=== PATIENT | male | born 1965 | race Caucasian/White ===

== ENCOUNTER 2025-06-16 01:51 | Day surgery (SDC) | payer OTHER, SELFPAY ==
[2025-06-03 10:15] VITALS: BMI 23.8
--- OUTSIDE RECORDS SUMMARY | 2025-06-16 01:55 | XMS_ITS | Continuity of Care Document ---
Author Organization [facility] Address [address] [facility] [address] [place] [address] Phone Care Team Providers Care Second Officer Name Role Phone Shadi OD OD, Johanny Unavailable Unavai lable Allergies, Adverse Reactions, Alerts Substance Reaction Status Criticality No Known Allergies Active No Inform ation Medications Medication Instructions Dosage Effective Dates (start - stop) Status Comments High blood pressure med BUCCAL MISCELL - Active multivitamin tablet - Active VITAMIN C (unknown strength) Not Available - Active OMEGA-3 (unknown strength) Not Available - Active Aspir-81 (unknown strength) Not Available - Active Procedures Procedure Date OFFICE/OUTPATIENT VISIT, EST OFFICE/OUTPATIENT VISIT, EST POSTOP FOLLOW-UP VISIT POSTOP FOLLOW-UP VISIT CATARACT SURG W/IOL, 1 STAGE POSTOP FOLLOW-UP VISIT POSTOP FOLLOW-UP VISIT CATARACT SURG W/IOL, 1 STAGE PHARMACY 2 EYES OFFICE/OUTPATIENT VISIT, NEW OPHTHALMIC BIOMETRY OPHTHALMIC BIOMETRY Advance Directives Directive Yes / No Effective Date File Name No Information Encounters Encounter Description Practice Location Reason(s) For Visit Diagnoses Date Provider Providers Copied on Encounter OFFICE/OUTPA TIENT VISIT, EST [facility], [address] [address], [place], [place], [id number], [place] tel:[phone] [facility] [place] Pseudophakia check (chief complaint) Other secondary cataract, bilateralOthe r vitreous opacities, bilateralPseu doaphakiaBila teral keratoconjunc tivitis sicca, not specified as Sjogren's 4 Derheimer OD Johanny. [address], [address], [place], [place], [id number], [place]. tel:[phone] Referring Provider: Family Lashell Terry OFFICE/OUTPA TIENT VISIT, [facility], [address] [place] [address], [id number], [place] tel:[phone] [facility] [place] blurry vision (chief complaint) Pseudoaphakia Other secondary cataract, bilateralOthe r vitreous opacities, bilateral 1 Derheimer OD Johanny. [address], [address], [place], [place], [id number], [place]. tel:[phone] Referring Provider: Family Lashell Terry [facility], [address] [place] [address], [id number], [place] tel:[phone] [facility] CONSULT [facility] [place] Post-Op (chief complaint) Pseudoaphakia 1 Derheimer OD Johanny. [address], [address], [place], [place], [id number], [place]. tel:[phone] Referring Provider: Family Lashell Terry [facility], [address] [place] [address], [id number], [place] tel:[phone] [facility] CONSULT [facility] [place] Post-Op (chief complaint) Age-related nuclear cataract, right eye 1 Derheimer OD Johanny. [address], [address], [place], [place], [id number], [place]. tel:[phone] Referring Provider: Family Lashell Terry [facility], [address] [place] [address], [id number], [place] tel:[phone] [facility] No Information 1 Charlie Watson. [address], [address], [place], [place], [id number], . tel:[phone] Referring Provider: Walter Hurd, [address], [place], [address] . tel:[phone] [facility], [address] [place] [address], [id number], tel:[phone] [facility]SULT [facility] [place] Post-Op (chief complaint) Pseudoaphakia 1 Derheimer OD Johanny. [address], [address], [place], [place], [id number], [place]. tel:[phone] Referring Provider: Family Lashell Terry [facility], [address] [place] [address], [id number], tel:[phone] [facility]PH CONSULT [facility] [place] Post-Op (chief complaint) Age-related nuclear cataract, bilateral 1 Derheimer OD Johanny. [address], [address] [place] [address], [id number], [place]. tel:[phone] Referring Provider: Family Lashell Terry [facility], [address] [place] [address], [id number], tel:[phone] [facility] No Information 1 Charlie Watson. [address], [address], [place], [place], [id number], [place]. tel:[phone] Referring Provider: Walter Hurd, [address], [place], [address] . tel:[phone] [facility], [address] [place] [address], [id number], [place] tel:[phone] OPH CONSULT [facility] No Information 1 Charlie Watson. [address], [address], [place], [place], [id number], [place]. tel:[phone] OFFICE/OUTPA TIENT VISIT, [facility], [address] [place] [address] [place], [id number], [place] tel:[phone] OPH CONSULT [facility] decreased vision (chief complaint) Age-related nuclear cataract, bilateralDerm atochalasis of left upper eyelidBilater al keratoconjunc tivitis sicca, not specified as Sjogren'sPost erior subcapsular polar age-related cataract, bilateral [phone] Charlie Watson. [address], [address], [place], [place], [id number], [place]. tel:[phone] Referring Provider: No PCP A.. Family History Family Member Type Diagnosis Age At Onset Problem No family history of Macular degeneration Problem No family history of Diabete s mellitus Problem No family history of Glaucom a Payers Payer name Insurance type Covered alliance party ID Authorbimal mcdaniel(s) [facility] [id number] Social History Type Description Quantity Date Captured Comments Alcohol Use Details Caffeine Use Details Unknown Tobacco Use Status Current non-smoker Smoking Status Never smoker Non-Smoking Tobacco Use Details : No Details Available : No Details Available Sex Male Chief Complaint And Reason For Visit From encounter dated '02/21/2024 07:00'. Pseudophakia check (chief complaint). Description: The 59 year old male presents for evaluation of Pseudophakia check in the right eye and left eye. It affects OU. He is PCIOL OU. He states his VA isgood. He is using OTC readers when needed and this is still working well. Reason For Referral Reason For Referral No Information History Of Present Illness Encounter Date Complaint History Of Prese nt Illness Pseudophakia check The 59 year o ld male presents for evaluation of Pseudophakia check in the right eye and left eye. It affects OU. He is PCIOL OU. He states his VA is good. He is using OTC readers when needed and this is still working well. blurry vision The 56 year old male presents for evaluation of blurry vision. Pt is here for 6 month follow up after PC IOL. Pt reports distance vision is great. Pt uses cheaters for near work, no complaints. Post-Op The status of th e patient has improved. The patient reports no pain. Additional information: Pt states vision OU is good after surgery. Denies eye pain/discomfort todayS/P CEIOL OU Std/DistOC's pt. Post-Op Additional infor mation: S/P PC IOL OU, ST/DVOC pt, no pain, vision is bettercompound gtts and Systane QID. Post-Op Additional infor mation: 1 week PCIOL PO OS, Std/DistPt says eye doing well since SxUsing [id number] 04/12/21 Std/DistOC pt. Post-Op Additional infor mation: 1 day PCIOL PO OS, Std/DistPt says eye doing well since SxUsing [id number] 04/12/21 Std/DistOC pt. decreased vision The 55 year old male presents for evaluation of decreased vision in the left eye. It started about 6 month(s) ago. It occurs all the time. It affects both near and far vision. Pt presents for a cat eval. He was ref'd by 2 co-workers. A mac OCT was ordered today. Functional Status Date Functional Assessmen t No Information Instructions Date Instruction Additional Infor mation Impression/Plan Related to Pseud oaphakia Impression/Plan Related to Other vitreous opacities, bilateral Impression/Plan Related to Other secondary cataract, bilateral Impression/Plan Related to Bilat eral keratoconjunctivitis sicca, not specified as Sjogren's Impression/Plan Related to Other vitreous opacities, bilateral Impression/Plan Related to Other secondary cataract, bilateral Impression/Plan Related to Pseud oaphakia Impression/Plan Related to Pseud oaphakia Impression/Plan Related to Age-r elated nuclear cataract, right eye Impression/Plan Related to Pseud oaphakia Impression/Plan Related to Age-r elated nuclear cataract, bilateral Return for CE IOL c Charlie Related to Bilateral keratoconjunctivitis sicca, not specified as Sjogren's Impression/Plan Related to Poste rior subcapsular polar age-related cataract, bilateral Impression/Plan Related to Age-r elated nuclear cataract, bilateral Impression/Plan Related to [place] tochalasis of left upper eyelid Impression/Plan Related to Bilat eral keratoconjunctivitis sicca, not specified as Sjogren's Assessments Type Assessment Date assessment Other secondary cataract, bilate ral impression Other secondary cataract, bilate ral: H26.493 assessment Other vitreous opacities, bilate ral impression Other vitreous opacities, bilate ral: H43.393 assessment Pseudoaphakia impression Pseudoaphakia: Z96.1 assessment Bilateral keratoconj unctivitis sicca, not specified as Sjogren's impression Bilateral keratoconj unctivitis sicca, not specified as Sjogren's: H16.223 Patient Care Teams Name Effective Dates (start - stop) Status Members No Information
[2025-06-16 10:13] VITALS: BP 153/89; PULSE 91; RESP 17; TEMP 36.7; O2SAT 100; BMI 22.1
[2025-06-16] MEDS: LACTATED RINGERS 1,000 ML 150 ML IV CONT (10:23)
--- NOTE | 2025-06-16 10:24 | P.PNAN_ITS ---
Anes - Initial Pre Proc Eval Procedure: Operation Date: 06/16/25 12:30 Proposed Procedures p Screening Colonoscopy - Keo Yusuf MD Date/Time: 06/16/25 10:24 Surgeon: Keo Yusuf MD Pre Op Diagnosis: Encounter for screening for malignant neoplasm of Patient Data Age: 60 Gender: M Height: 1.65 m Weight: 60.4 kg Last Vital Signs Temp 36.7 C 06/16/25 10:13 Pulse 91 06/16/25 10:13 Resp 17 06/16/25 10:13 BP 153/89 H 06/16/25 10:13 Pulse Ox 100 06/16/25 10:13 O2 Del Method Room Air 06/16/25 10:13 Allergies Allergy/AdvReac Type Severity Reaction Status Date / Time No Known Allergies Allergy Verified 06/16/25 10:10 Home Medications ?Medication ?Instructions ?Recorded ?Confirmed ?Type amlodipine 10 mg tablet 10 mg PO DAILY 03/13/25 06/16/25 History lisinopril 20 1 tablet PO DAILY 03/13/25 06/16/25 History mg-hydrochlorothiazide 12.5 mg tablet sildenafil 100 mg tablet 100 mg PO DAILY PRN sexual activity 03/13/25 06/03/25 History ascorbic acid (vitamin C) 1,000 mg 1 g PO DAILY 06/03/25 06/16/25 History tablet aspirin 81 mg tablet,delayed 81 mg PO DAILY 06/03/25 06/16/25 History release multivitamin 1 tablet PO DAILY 06/03/25 06/03/25 History Patient hx anesthesia problems: none Family hx anesthesia problems: none Results Review: All pre-operative results and documents have been reviewed as part of the pre- operative evaluation. [facility] Past Medical History Medical History (Updated 06/16/25 @ 10:25 by Yehuda Grossman MD) HTN (hypertension) Social History Social History Smoking packs per day: 2 Smoking cigarettes per day: 40.0 Years smoked: 45 Smoking pack-years: 90.00 Smoking status: Current every day smoker Tobacco type: cigarettes Alcohol intake: current Drinks per week: 70 Alcohol use details: Beer Substance use: never Substance use type: does not use Living arrangements: with family Spiritual care concerns: No Anes - Eval Final PreProcedure Day of Procedure 06/16/25 10:24 Patient weight: normal Heart: regular rate and rhythm Lungs: clear to auscultation Airway: Mallampati scale class II Neurological: alert and oriented Last oral intake: >/= 8 hours ASA classification: III Emergent: no Anesthetic plan: proceed Anesthesia type and monitoring: general GIVS and standard monitoring Results Review: All pre-operative results and documents have been reviewed as part of the pre- operative evaluation. Informed Consent: The patient's anesthetic plan and its attendant risks and benefits were discussed with the patient/family/POA. Questions were solicited and answers provided to the satisfaction of the patient/family/POA.
--- NOTE | 2025-06-16 11:19 | P.HP_ITS ---
H&P: HPI History of Present Illness Date/Time: 06/16/25 11:19 Chief Complaint: Screening colonoscopy Narrative: This is the patient's first colonoscopy. There are no GI symptoms and there is no family history of colorectal cancer. Review of Systems Review of Systems: All systems reviewed & are unremarkable except as noted in HPI and below [facility] Past Medical History Medical History (Updated 06/16/25 @ 11:20 by Keo Yusuf MD) HTN (hypertension) Social History Social History Smoking packs per day: 2 Smoking cigarettes per day: 40.0 Years smoked: 45 Smoking pack-years: 90.00 Smoking status: Current every day smoker Tobacco type: cigarettes Alcohol intake: current Drinks per week: 70 Alcohol use details: Beer Substance use: never Substance use type: does not use Living arrangements: with family Spiritual care concerns: No Meds Home Medications and Allergies Home Medications ?Medication ?Instructions ?Recorded ?Confirmed ?Type amlodipine 10 mg tablet 10 mg PO DAILY 03/13/25 06/16/25 History lisinopril 20 1 tablet PO DAILY 03/13/25 06/16/25 History mg-hydrochlorothiazide 12.5 mg tablet sildenafil 100 mg tablet 100 mg PO DAILY PRN sexual activity 03/13/25 06/03/25 History ascorbic acid (vitamin C) 1,000 mg 1 g PO DAILY 06/03/25 06/16/25 History tablet aspirin 81 mg tablet,delayed 81 mg PO DAILY 06/03/25 06/16/25 History release multivitamin 1 tablet PO DAILY 06/03/25 06/03/25 History Allergies Allergy/AdvReac Type Severity Reaction Status Date / Time No Known Allergies Allergy Verified 06/16/25 10:10 Vital Signs Vital Signs - 24 hr 06/16/25 10:13 Temperature 98.0 F Pulse Rate 91 Respiratory Rate 17 Blood Pressure 153/89 H Pulse Oximetry 100 Oxygen Delivery Room Air Exam Const: General: cooperative and healthy appearing Resp: Effort & Inspection: normal respiratory effort and able to speak in complete sentences Auscultation: clear to auscultation bilaterally Cardio: Rate: regular rate Rhythm: regular rhythm GI: Inspection: normal to inspection GI Palp: No No hepatosplenomegaly present Auscultation: normal bowel sounds Rectal Exam: deferred Skin: General skin exam: normal color Psych: Appearance: grossly normal Mental Status: mental status grossly normal Assessment and Plan Assessment and plan (1) Encounter for screening colonoscopy: Code(s): Z12.11 - Encounter for screening for malignant neoplasm of colon Status: Acute Assessment and Plan: The patient is deemed a good candidate for the procedure. Consent signed. Will proceed.
--- NOTE | 2025-06-16 11:43 | S_PTH ---
PATIENT: Erich Yanez LOC: [facility] U#:[id number] AGE/SX: 60/M ROOM: RE06/16/[address]: Keo Yusuf MD : 1965 BED: DIS: 06/16/2025 SPEC #: [id number] RECD: 06/16/25 13:36 STATUS: PAUL REJordon #: [id number] CHANDLER: 06/16/25 11:[address]: Keo Yusuf DEPT: [facility] Surgical RECD BY: Allen Capone ENTERED: 06/16/25 13:37 SP TYPE: Surgical OTHR DR: Bob ChowMD Tissues: A - Colon Polypectomy Procedures: Hematoxylin and Eosin Stain Gross and Microscopic Level 4
[2025-06-16 11:53] VITALS: BP 116/78; PULSE 81; RESP 22; O2SAT 100
[2025-06-16 12:03] VITALS: BP 126/80; PULSE 80; RESP 20; O2SAT 100
[2025-06-16 12:13] VITALS: BP 130/86; PULSE 66; RESP 18; O2SAT 100
== END 2025-06-16 12:18 | disposition home or self-care (01) ==
PROVIDERS: PCP Family Medicine; Referring Provider Family Medicine; Visit Provider Internal Medicine Gastroenterology
PROC: 0DJD8ZZ Inspection of Lower Intestinal Tract, Via Natural or Artificial Opening Endoscopic (ICD-10-PCS; CPT 45378; principal; 2025-06-16 12:30)
DX: Z12.11 Encounter for screening for malignant neoplasm of colon (principal); D12.3 Benign neoplasm of transverse colon; K64.8 Other hemorrhoids; I10 Essential (primary) hypertension; F17.210 Nicotine dependence, cigarettes, uncomplicated; Z79.82 Long term (current) use of aspirin
CPT/HCPCS: 45385; 88305; J2003; J2704; J7120